=== PATIENT | male | born 1955 | race African-American/Black ===

== ENCOUNTER 2016-08-01 11:21 | Day surgery (SDC) | payer OTHER ==
[2016-08-01] MEDS ORDERED: Iopamidol 408 MG/ML 50 ML SDV ONE (11:35)
[2016-08-01] MEDS ORDERED: Lidocaine 2% 5 ML SDV ONE (11:35)
[2016-08-01] MEDS ORDERED: Betamethasone Acetate/Betamethasone Sod Phosphate 30 MG/5 ML MDV ONE (11:35)
[2016-08-01] MEDS ORDERED: Ropivacaine 0.5% 5 MG/ML 30 ML SDV ONE (11:35)
--- NOTE | 2016-08-01 17:44 | OR ---
SURGEON: Alesha Crow D.O. DATE OF PROCEDURE: 08/01/2016 OR STAFF PRESENT: 1. Zaki Thomas RN. NUCLEAR MEDICAL TECH: RT Beth. WOUND CLASSIFICATION: I. PREOPERATIVE DIAGNOSES: 1. Lumbar degenerative disk disease. 2. Lumbar radiculopathy. POSTOPERATIVE DIAGNOSES: 1. Lumbar degenerative disk disease. 2. Lumbar radiculopathy. PROCEDURE PERFORMED: 1. Lumbar epidural steroid injection at L4-5, intralaminar. 2. Fluoroscopic guidance for needle placement. 3. Local with oral Valium for sedation. SCREENING QUESTIONS: The patient answered "no" to all of the following questions: 1. Are you allergic to latex? 2. Do you have a bleeding disorder? 3. Do you have any current local or systemic infections? 4. Are you taking any anti-inflammatories or blood thinners? 5. Do you have any joint replacements, heart valve replacements, or a pacemaker? DESCRIPTION OF PROCEDURE: The patient had the procedure thoroughly explained including all possible risks, benefits and alternatives. Consent was signed in my clinic indicating understanding and willingness to proceed. The patient presented to [facility] and was escorted to the dressing room to disrobe and change into a hospital gown. Preoperative vital signs were taken and stable. The patient reported that Valium was taken prior to the procedure. The patient was brought back to the procedure room and placed in the prone position on the procedure room table. A pillow was placed under the hips in order to flatten the lumbar lordosis. The back was prepped with ChloraPrep and sterilely draped. All personnel in the operating room were dressed in appropriate attire including surgical scrubs, head and shoe covers. This was to ensure sterility while in the treatment room. During the time fluoroscopy was in use, all personnel in the operating room wore lead vergara with thyroid collars. Sterile technique was used throughout the procedure. The patient was awake and conversant throughout the procedure. There was no evidence of infection at the site of needle insertion. Skeletal landmarks were identified under fluoroscopy for the lumbar epidural. Skin was anesthetized with 2% lidocaine with a sterile 27-gauge 1.5 inch needle. Then a 20-gauge Tuohy epidural needle was placed in the epidural space with loss of resistance technique under fluoroscopic guidance. No heme, cerebrospinal fluid, or paresthesias were noted. Isovue-200 contrast dye was injected in 0.2 cubic centimeter increments and seen to outline the epidural space in both AP and lateral views. There was no intravascular flow pattern observed under live fluoroscopy. Then 12 milligrams of Celestone was slowly injected after negative aspiration. The patient tolerated the procedure well. Vital signs were stable during and after the procedure. The staff escorted the patient to the recovery area and the patient was released in stable condition after a brief stay in the recovery room monitored by the nurse. The patient was given both oral and written discharge and follow up instructions with recommendation to follow up given for 2-3 weeks. The patient voiced understanding including understanding of those signs and symptoms that would require emergency care. The patient knows how to contact the office if there are any additional problems or questions in the meantime. PREOPERATIVE PAIN: 8. POSTOPERATIVE PAIN: 2. FOLLOWUP: Followup in the Pain Clinic in 3 weeks. CAMELIA / RADHA /[id number]
== END 2016-08-01 13:05 | disposition home or self-care (01) ==
LOC: MW.SDS 11:21
PROVIDERS: ATTEND Anesthesiology
PROC: 3E0S33Z Introduction of Anti-inflammatory into Epidural Space, Percutaneous Approach (ICD-10-PCS; principal; 2016-08-01)
DX: M51.16 Intervertebral disc disorders with radiculopathy, lumbar region (principal); B19.20 Unspecified viral hepatitis C without hepatic coma; I10 Essential (primary) hypertension; M16.11 Unilateral primary osteoarthritis, right hip; F32.9 Major depressive disorder, single episode, unspecified; F17.210 Nicotine dependence, cigarettes, uncomplicated; Z79.899 Other long term (current) drug therapy; Z98.890 Other specified postprocedural states
CPT/HCPCS: 62323; J0702; Q9966; J2795

== ENCOUNTER 2017-03-06 11:50 | Day surgery (SDC) | payer OTHER ==
[~2017-03-06 11:50] MED LIST: Betamethasone Acetate/Betamethasone Sod Phosphate 30 MG/5 ML MDV ONE; Iopamidol 408 MG/ML 50 ML SDV ONE; Lidocaine 2% 5 ML SDV ONE; Ropivacaine 0.5% 5 MG/ML 30 ML SDV ONE
--- NOTE | 2017-03-06 21:38 | OR ---
SURGEON: Alesha Crow D.O. DATE OF PROCEDURE: 03/06/2017 OR STAFF PRESENT: 1. Zackary Gomez RN. 2. Zackary Sanders RN. 3. Elvira Sharma RT. WOUND CLASSIFICATION: I. PREOPERATIVE DIAGNOSES: 1. Lumbar degenerative disk disease. 2. Lumbar radiculopathy. POSTOPERATIVE DIAGNOSES: 1. Lumbar degenerative disk disease. 2. Lumbar radiculopathy. PROCEDURE PERFORMED: 1. Lumbar intralaminar epidural steroid injection at L4-5. 2. Fluoroscopic guidance for needle placement. 3. Local with oral Valium for sedation. SCREENING QUESTIONS: The patient answered "no" to all of the following questions: 1. Are you allergic to latex? 2. Do you have a bleeding disorder? 3. Do you have any current local or systemic infections? 4. Are you taking any anti-inflammatories or blood thinners? 5. Do you have any joint replacements, heart valve replacements, or a pacemaker? DESCRIPTION OF PROCEDURE: The patient had the procedure thoroughly explained including all possible risks, benefits and alternatives. Consent was signed in my clinic indicating understanding and willingness to proceed. The patient presented to [facility] [place] and was escorted to the dressing room to disrobe and change into a hospital gown. Preoperative vital signs were taken and stable. The patient reported that Valium was taken prior to the procedure. The patient was brought back to the procedure room and placed in the prone position on the procedure room table. A pillow was placed under the hips in order to flatten the lumbar lordosis. The back was prepped with ChloraPrep and sterilely draped. All personnel in the operating room were dressed in appropriate attire including surgical scrubs, head and shoe covers. This was to ensure sterility while in the treatment room. During the time fluoroscopy was in use, all personnel in the operating room wore lead vergara with thyroid collars. Sterile technique was used throughout the procedure. The patient was awake and conversant throughout the procedure. There was no evidence of infection at the site of needle insertion. Skeletal landmarks were identified under fluoroscopy for the lumbar epidural. Skin was anesthetized with 2% lidocaine with a sterile 27-gauge 1.5 inch needle. Then a 20-gauge Tuohy epidural needle was placed in the epidural space with loss of resistance technique under fluoroscopic guidance. No heme, cerebrospinal fluid, or paresthesias were noted. Isovue-200 contrast dye was injected in 0.2 cubic centimeter increments and seen to outline the epidural space in both AP and lateral views. There was no intravascular flow pattern observed under live fluoroscopy. Then 12 milligrams of Celestone was slowly injected after negative aspiration. The patient tolerated the procedure well. Vital signs were stable during and after the procedure. The staff escorted the patient to the recovery area and the patient was released in stable condition after a brief stay in the recovery room monitored by the nurse. The patient was given both oral and written discharge and follow up instructions with recommendation to follow up given for 2-3 weeks. The patient voiced understanding including understanding of those signs and symptoms that would require emergency care. The patient knows how to contact the office if there are any additional problems or questions in the meantime. PREOPERATIVE PAIN: 5/10. POSTOPERATIVE PAIN: 1/10. FOLLOWUP: Follow up in the Pain Clinic in the morning by phone and in 3 weeks. PRIMARY SURGEON: SECONDARY SURGEON: ASSOCIATE PROFESSOR OF MANAGEMENT: REASON ASSOCIATE PROFESSOR OF MANAGEMENT WAS NECESSARY: ROLE OF ASSOCIATE PROFESSOR OF MANAGEMENT: CAMELIA GARCIA /[id number]
== END 2017-03-06 14:35 | disposition home or self-care (01) ==
LOC: MW.SDS 11:50
PROVIDERS: ATTEND Anesthesiology
DX: M51.16 Intervertebral disc disorders with radiculopathy, lumbar region (principal); M16.11 Unilateral primary osteoarthritis, right hip; M15.9 Polyosteoarthritis, unspecified; F32.9 Major depressive disorder, single episode, unspecified; F41.9 Anxiety disorder, unspecified; F17.210 Nicotine dependence, cigarettes, uncomplicated; Z79.899 Other long term (current) drug therapy
CPT/HCPCS: 62323; J0702; J2795; Q9966